=== PATIENT | female | born 1955 | race Caucasian/White ===

== ENCOUNTER → 2023-07-23 | Outpatient (CLI) | payer MEDICARE | END | disposition home or self-care (01) | LOC: RAH 09:35 | PROVIDERS: ATTEND Family Medicine | DX: E04.1 Nontoxic single thyroid nodule (principal) | CPT/HCPCS: 76536 ==

== ENCOUNTER → 2024-03-25 | Outpatient (CLI) | payer MEDICARE | END | disposition home or self-care (01) | LOC: RAH 11:24 | PROVIDERS: ATTEND Internal Medicine Endocrinology, Diabetes & Metabolism | DX: E04.1 Nontoxic single thyroid nodule (principal); E89.0 Postprocedural hypothyroidism | CPT/HCPCS: 76536 ==

== ENCOUNTER → 2024-09-28 | Outpatient (CLI) | payer MEDICARE | END | disposition home or self-care (01) | LOC: SHCH 13:05 | PROVIDERS: ATTEND Internal Medicine Cardiovascular Disease | DX: R01.1 Cardiac murmur, unspecified (principal) | CPT/HCPCS: 93306 ==

== ENCOUNTER → 2024-09-28 | Outpatient (CLI) | payer OTHER | END | disposition home or self-care (01) | LOC: RAH 12:55 | PROVIDERS: ATTEND Internal Medicine Cardiovascular Disease | DX: Z13.6 Encounter for screening for cardiovascular disorders (principal); R01.1 Cardiac murmur, unspecified | CPT/HCPCS: 75571 ==

== ENCOUNTER → 2025-06-01 | Outpatient (CLI) | payer MEDICARE ==
--- NOTE | 2025-06-02 06:47 | HMCIMG ---
EXAMINATION: ULTRASOUND OF THE THYROID. CLINICAL HISTORY: Follow up thyroid nodule. COMPARISON: Ultrasound of the thyroid dated 03/25/2024. TECHNIQUE: Transverse and longitudinal images were obtained through both lobes and the isthmus of the thyroid. FINDINGS: The left thyroid lobe is not visualized, post thyroidectomy status. No recurrent lesions seen. The right thyroid gland is normal in caliber with homogenous tissue echotexture. The right thyroid lobe measures 5.7 x 2.5 x 1.7 cm in the craniocaudal, AP, and transverse dimensions respectively. The isthmus measures 0.18 cm in AP dimension. Right lobe: There is a hypoechoic mixed solid cystic nodule that measures 3.2 x 2.3 x 2.5 cm at the mid pole (TR3). There is a hypoechoic mixed solid cystic nodule that measures 0.4 x 0.4 cm at the upper pole (TR3). No significantly enlarged lymph nodes. IMPRESSION: Post left thyroidectomy status. Nodules in the right lobe of the thyroid. The larger nodule is unchanged and interval appearance of upper pole nodule. TI-RADS follow up recommendations: TR1: no FNA required TR2: no FNA required TR3: more than or equal to 1.5 cm follow up, more than or equal to 2.5 cm FNA follow up: 1, 3 and 5 years TR4: more than or equal to 1.0 cm follow up, more than or equal to 1.5 cm FNA follow up: 1, 2, 3 and 5 years TR5: more than or equal to 0.5 cm follow up, more than or equal to 1.0 cm FNA annual follow up for up to 5 years /[place]
== END | disposition home or self-care (01) ==
LOC: RAH 08:30
PROVIDERS: ATTEND Internal Medicine Endocrinology, Diabetes & Metabolism
DX: E04.2 Nontoxic multinodular goiter (principal); E89.0 Postprocedural hypothyroidism
CPT/HCPCS: 76536

== ENCOUNTER → 2025-06-16 | Outpatient (CLI) | payer MEDICARE ==
--- NOTE | 2025-06-17 07:21 | HMCIMG ---
EXAM: MR Cervical Spine Without Intravenous Contrast. CLINICAL HISTORY: Pain. TECHNIQUE: Magnetic resonance images of the cervical spine without intravenous contrast in multiple planes. CONTRAST: None. COMPARISON: None. FINDINGS: Imaged posterior fossa is unremarkable. The craniocervical junction is intact. No acute fracture. Normal cervical spine alignment. Mild to moderate spondylosis is evident by marginal osteophytes and facet arthropathy at multiple levels. Disc desiccation at multiple levels. Mild degenerative reduction in the disc height at C5-C6 and C6-C7. No focal abnormality within the cervical cord. Mild Modic type I changes in the contiguous endplates of C6-C7. Normal marrow signal seen the remaining vertebrae. Grossly unremarkable paraspinal soft tissues. Incidental solid cystic mass within the right lobe of the thyroid. 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 C2-C3: 1 mm disc bulge, indenting the anterior thecal sac. No significant neural foramina, lateral recess, or spinal canal stenosis. C3-C4: 2 mm disc bulge, indenting the anterior thecal sac. No significant neural foramina, lateral recess, or spinal canal stenosis. C4-C5: 2 mm diffuse posterior disc bulge, indenting the anterior thecal sac with mild bilateral neural foraminal narrowing. No spinal canal stenosis. C5-C6: 3 mm disc osteophyte complex bulge, indenting the anterior thecal sac with moderate bilateral neural foraminal narrowing and mild abutment of the bilateral exiting C6 nerve roots. Mild spinal canal stenosis. C6-C7: 3 mm disc osteophyte complex bulge, indenting the anterior thecal sac. Moderate bilateral neuroforaminal narrowing with mild impingement on the bilateral exiting C7 nerve roots. Mild spinal canal stenosis. C7-T1: No significant disc bulge, neural foraminal, lateral recess, or spinal canal stenosis. IMPRESSION: No acute fracture. Mild to moderate spondylosis and degenerative disc disease, most pronounced at C5-C6 and C6-C7 levels. Incidental solid cystic mass in the right lobe of the thyroid, recommend thyroid ultrasound and thyroid scintigraphy for further evaluation. /[place]
== END | disposition home or self-care (01) ==
LOC: RAH 12:28
PROVIDERS: ATTEND Family Medicine
DX: M50.122 Cervical disc disorder at C5-C6 level with radiculopathy (principal); M50.123 Cervical disc disorder at C6-C7 level with radiculopathy; M50.11 Cervical disc disorder with radiculopathy, high cervical region; M50.121 Cervical disc disorder at C4-C5 level with radiculopathy; M47.22 Other spondylosis with radiculopathy, cervical region; M19.09 Primary osteoarthritis, other specified site; M25.78 Osteophyte, vertebrae; E04.1 Nontoxic single thyroid nodule; M48.02 Spinal stenosis, cervical region
CPT/HCPCS: 72141